=== PATIENT | female | born 1995 | race Two or more races ===

== ENCOUNTER 2021-05-06 20:36 | Emergency (ER) | payer MEDICAID ==
[~2021-05-06] VITALS: Ht 167.6 cm; Wt 62.0 kg
[2021-05-06] MEDS ORDERED: ACETAMINOPHEN WITH CODEINE 300/30MG TABLET PO ONE (22:15)
[2021-05-06] MEDS ORDERED: BACITRACIN ZINC OINT UDPKT TOP ONE (22:30)
[2021-05-06] MEDS ORDERED: IBUP-2028 MT (22:53)
[2021-05-06] MEDS ORDERED: BO1 TP (22:53)
[2021-05-06 23:12] VITALS: BP 126/86
== END 2021-05-06 23:17 | disposition home or self-care (01) ==
LOC: ER 20:36
DX: S20.213A Contusion of bilateral front wall of thorax, initial encounter (principal); T23.172A Burn of first degree of left wrist, initial encounter; M25.562 Pain in left knee; W22.11XA Striking against or struck by driver side automobile airbag, initial encounter; V49.49XA Driver injured in collision with other motor vehicles in traffic accident, initial encounter; Y93.89 Activity, other specified; Y92.488 Other paved roadways as the place of occurrence of the external cause; X08.8XXA Exposure to other specified smoke, fire and flames, initial encounter
CPT/HCPCS: 71046; 81025; 99283